=== PATIENT | female | born 1930 | race Caucasian/White ===

== ENCOUNTER 2016-11-03 13:49 | Observation (INO) | payer BC ==
[~2016-11-03] VITALS: Ht 172.7 cm; Wt 99.0 kg
[2016-11-03] MEDS ORDERED: NITROGLYCERIN OINT 2% 1GM PACKET EXT STA (14:07)
[2016-11-03] MEDS ORDERED: NITROGLYCERIN OINT 2% 1GM PACKET ONE (14:12)
[2016-11-03 14:18] LABS: BASO % 0.5 %; BASO ABS # 0.05 K/uL (0-0.2); COMPLETE YES; EOS % 2.2 %; HEMATOCRIT 36.9 % (37-47); IG% 0.3 %; LYMPH % 19.3 %; LYMPH ABS # 1.83 K/uL (1.2-3.4); MEAN CELL VOLUME 89.3 fL (80-100); MEAN CORPUSCULAR HGB CONC 34.7 g/dl (32-36); MEAN PLATELET VOLUME 9.7 fL (7.4-10.4); MONO % 7.3 %; NEUT % 70.4 %; PLATELET COUNT 289 K/uL (130-400); RED BLOOD COUNT 4.13 M/uL (4.2-5.4); WHITE BLOOD COUNT 9.46 K/uL (4.8-10.8)
--- NOTE | 2016-11-03 14:21 | EMERGENCY ROOM VISIT NOTE ---
History Report prepared by Cristhian: Amada Sagastume Under the Supervision of: Dr. Luis Castro M.D. First contact with patient: 14:02 Chief Complaint: CARDIAC ASSESSMENT Stated Complaint: CHEST DISCOMFORT History of Present Illness The patient is a 86 year old female who presents to the Emergency Room with complaints of intermittent midsternal chest pain that started 3 days ago. The history is limited secondary to dementia. The patient came to the ED via ambulance from the residential. Nursing staff reports that the patient's chest pain was relieved with nitroglycerin and aspirin. Nursing staff also reports that the patient was recently diagnosed with pneumonia. She has a history of hypertension and dementia. Source of History: patient, nursing staff History Limited By: dementia Onset: 3 days ago Position: chest (midsternal) Timing: intermittent Review of Systems See HPI for pertinent positives & negatives. ROS limited secondary to dementia. Past Medical & Surgical Medical Problems: (1) Anxiety (2) Asthma (3) Dementia (4) Hypertension (5) Hypothyroidism Family History No pertinent family history Social History Smoking Status: Never Smoker Housing Status: residential Current/Historical Medications Scheduled Aspirin (Aspirin Ec), 81 MG PO DAILY Bisoprolol & Hydrochlorothiazi (Bisoprolol Fumarate/[place]), 2.5-6.25 MG PO DAILY Bumetanide (Bumex), 0.5 MG PO 2XWK Calcium/Vitamin D (Os-Ld 500 Plus D), 1 TAB PO DAILY Cholecalciferol (Vitamin D-1000), 3 CAP PO DAILY Cyclosporine (Ophth) (Restasis), 1 DROPS OP BID Esomeprazole Magnesium (Nexium), 40 MG PO DAILY Fluticasone Prop/Salmeterol (Advair Diskus 250/50 60 Dose), 1 PUFFS INH BID Levothyroxine Sodium (Synthroid), 1 TAB PO DAILY Memantine Hcl (Namenda Xr), 1 CAP PO DAILY Montelukast Sodium (Singulair), 1 TAB PO HS Ocuvite Preservision (Ocuvite Preservision), 1 TAB PO BID Potassium Chloride (Micro-K Ext Rel), 10 MEQ PO BID Quetiapine Fumarate (Seroquel), 25 MG PO HS Saccharomyces Boulardii (Florastor), 1 CAP PO BID Scheduled PRN Acetaminophen Tab (Tylenol), 650 MG PO Q4H PRN for Pain or Fever Albuterol Hfa (Ventolin Hfa), 2-4 PUFFS INH Q6H PRN for Wheezing Benzocaine-Menthol (Mouth-Thro (Cepacol Sore Throat), 1 LUCA PO Q4H PRN for SORE THROAT Dextromethorphan-Guaifenesin (Siltussin-Dm), 5 ML PO Q8 PRN for cou Ipratropium-Albuterol (Duoneb), 1 TREATMENT INH Q6 PRN for Shortness of Breath Loperamide Hcl (Imodium), 2 MG PO Q4 PRN for Diarrhea Lorazepam (Ativan), 0.5 MG PO BID PRN for Anxiety Magnesium Hydroxide (Milk Of Magnesia), 30 ML PO DAILY PRN for Constipation Allergies Coded Allergies: No Known Allergies (Unverified , 11/03/16) Physical Exam Vital Signs Date Time Temp Pulse Resp B/P Pulse Ox O2 Delivery O2 Flow Rate FiO2 11/03/16 16:14 85 20 186/90 95 11/03/16 15:28 82 20 179/82 96 Room Air 11/03/16 14:11 96 Room Air 11/03/16 14:05 170/94 11/03/16 14:02 94 Room Air 11/03/16 14:01 82 11/03/16 13:56 37.0 83 18 196/83 99 Room Air 11/03/16 13:55 96 Room Air Physical Exam GENERAL: Patient is a healthy-appearing well-nourished female HEAD: Normocephalic atraumatic EYES: Ocular movements intact pupils equal and react to light OROPHARYNX mucous membranes are moist no exudates present no erythema or edema present NECK: Supple no nuchal rigidity CHEST: Good equal expansion LUNGS: Clear and equal to auscultation CARDIAC: Normal S1 and S2 ABDOMEN: Soft nontender no guarding BACK: No CVA tenderness EXTREMITIES: No pain upon palpation normal muscle strength in all groups no clubbing cyanosis or edema NEURO: Patient is following commands. Alert and not oriented to place. Cranial Nerves 2-12 grossly intact Medical Decision & Procedures ER Provider Diagnostic Interpretation: X-ray results as stated below per interpretation by me and the radiologist: CHEST ONE VIEW PORTABLE IMPRESSION: No active disease in the chest. Electronically signed by: Deng Monroy M.D. 11/03/2016 2:24 PM Dictated Date/Time: 11/03/2016 2:23 PM Laboratory Results 11/03/16 14:00 Red Blood Count 4.13, Mean Corpuscular Volume 89.3, Mean Corpuscular Hemoglobin 31.0, Mean Corpuscular Hemoglobin Concent 34.7, Mean Platelet Volume 9.7, Neutrophils (%) (Auto) 70.4, Lymphocytes (%) (Auto) 19.3, Monocytes (%) (Auto) 7.3, Eosinophils (%) (Auto) 2.2, Basophils (%) (Auto) 0.5, Neutrophils # (Auto) 6.65, Lymphocytes # (Auto) 1.83, Monocytes # (Auto) 0.69, Eosinophils # (Auto) 0.21, Basophils # (Auto) 0.05 Test 11/03/16 14:00 White Blood Count 9.46 K/uL (4.8-10.8) Red Blood Count 4.13 M/uL (4.2-5.4) Hemoglobin 12.8 g/dL (12.0-16.0) Hematocrit 36.9 % (37-47) Mean Corpuscular Volume 89.3 fL (80-100) Mean Corpuscular Hemoglobin 31.0 pg (25-34) Mean Corpuscular Hemoglobin Concent 34.7 g/dl (32-36) Platelet Count 289 K/uL (130-400) Mean Platelet Volume 9.7 fL (7.4-10.4) Neutrophils (%) (Auto) 70.4 % Lymphocytes (%) (Auto) 19.3 % Monocytes (%) (Auto) 7.3 % Eosinophils (%) (Auto) 2.2 % Basophils (%) (Auto) 0.5 % Neutrophils # (Auto) 6.65 K/uL (1.4-6.5) Lymphocytes # (Auto) 1.83 K/uL (1.2-3.4) Monocytes # (Auto) 0.69 K/uL (0.11-0.59) Eosinophils # (Auto) 0.21 K/uL (0-0.5) Basophils # (Auto) 0.05 K/uL (0-0.2) RDW Standard Deviation 47.1 fL (36.4-46.3) RDW Coefficient of Variation 14.3 % (11.5-14.5) Immature Granulocyte % (Auto) 0.3 % Immature Granulocyte # (Auto) 0.03 K/uL (0.00-0.02) Est Creatinine Clear Calc Drug Dose 45.1 ml/min Total Bilirubin 0.4 mg/dl (0.2-1) Direct Bilirubin < 0.1 mg/dl (0-0.2) Aspartate Amino Transf (AST/SGOT) 13 U/L (15-37) Alanine Aminotransferase (ALT/SGPT) 16 U/L (12-78) Alkaline Phosphatase 117 U/L (45-117) Total Creatine Kinase 43 U/L (26-192) Total Protein 7.8 gm/dl (6.4-8.2) Albumin 3.3 gm/dl (3.4-5.0) Lipase 108 U/L (73-393) Labs reviewed by ED physician. Medications Administered Medications (Trade) Dose Ordered Sig/Sohan Route Start Time Stop Time Status Last Admin Dose Admin Nitroglycerin 1 inch 1 inch Q6H STAT EXT 11/03/16 14:07 11/03/16 14:09 DC 11/03/16 14:07 1 INCH Sodium Chloride (Nss 1000ml) 1,000 ml @ 75 mls/hr [id number] IV 11/03/16 16:30 11/03/16 23:09 11/03/16 18:11 75 MLS/HR ECG Indication: chest pain Rate (beats per minute): 82 Rhythm: normal sinus Findings: no acute ischemic change, no ectopy ED Course 1404: Past medical records reviewed. The patient was evaluated in room C4. A complete history and physical examination was performed. 1407: Ordered Nitroglycerin 1 inch EXT 1455: Upon reexamination the patient is resting comfortably. The patient will be evaluated for further management. 1457: I discussed the patient's case with Kathi Goncalves, she has agreed to evaluate the patient for further management and care. Medical Decision Differential diagnosis: Etiologies such as cardiac ischemia, aortic dissection, pulmonary embolism, pneumonia, pneumothorax, musculoskeletal, infections, pericarditis, myocarditis , esophageal rupture, gastrointestinal, as well as others were entertained. This is an 86-year-old female who presents emergency department complaining of chest pain. The chest pain was relieved by nitroglycerin. The patient currently has no complaints however has heavy dementia and is not sure where she is. For this reason I felt that the patient should be admitted for chest pain rule out. She has a normal CK-MB and troponin. The patient was given 1 inch of Nitropaste in the emergency department and was in agreement with the treatment plan. Consults Time Called: 1450 Consulting Physician: Kathi Santamaria Returned Call: [phone] I discussed the patient's case with Kathi Goncalves, she has agreed to evaluate the patient for further management and care. Impression Primary Impression: Precordial chest pain Scribe Attestation The scribe's documentation has been prepared under my direction and personally reviewed by me in its entirety. I confirm that the note above accurately reflects all work, treatment, procedures, and medical decision making performed by me. Departure Information Dispostion Being Evaluated By Hospitalist Referrals Tate Gonzalez D.O. (PCP) Patient Instructions My [facility]
--- NOTE | 2016-11-03 14:25 | DIAGNOSTIC IMAGING REPORT ---
CHEST ONE VIEW PORTABLE CLINICAL HISTORY: Atypical chest pain COMPARISON STUDY: No previous studies for comparison. FINDINGS: The cardiac and mediastinal contours are normal. There is no evidence of focal pulmonary consolidation. There is no evidence of failure. No pleural effusions are visualized.[ IMPRESSION: No active disease in the chest. Electronically signed by: Deng Monroy M.D. 11/03/2016 2:24 PM Dictated Date/Time: 11/03/2016 2:23 PM
[2016-11-03] MEDS ORDERED: SACC250C PO (14:30)
[2016-11-03] MEDS ORDERED: LEVO25TA PO (14:30)
[2016-11-03] MEDS ORDERED: ADVIN25/60 INH (14:30)
[2016-11-03] MEDS ORDERED: BENZ10LO2 PO (14:30)
[2016-11-03] MEDS ORDERED: MEMA1CAP7 PO (14:30)
[2016-11-03] MEDS ORDERED: VNTHFA/IN INH (14:30)
[2016-11-03] MEDS ORDERED: DEXTSYP29 PO (14:30)
[2016-11-03] MEDS ORDERED: POTA10CA28 PO (14:30)
[2016-11-03] MEDS ORDERED: ACET325T96 PO (14:30)
[2016-11-03] MEDS ORDERED: LORA-741 PO (14:30)
[2016-11-03] MEDS ORDERED: CYCL0.052 OP (14:30)
[2016-11-03] MEDS ORDERED: BISO2.5T PO (14:30)
[2016-11-03] MEDS ORDERED: ASPI81TA28 PO (14:30)
[2016-11-03] MEDS ORDERED: MOML PO (14:30)
[2016-11-03] MEDS ORDERED: IPRASOL4 INH (14:30)
[2016-11-03] MEDS ORDERED: IMD/2 PO (14:30)
[2016-11-03] MEDS ORDERED: CALC500C70 PO (14:30)
[2016-11-03] MEDS ORDERED: CHOL100040 PO (14:30)
[2016-11-03] MEDS ORDERED: BUME1TAB PO (14:30)
[2016-11-03] MEDS ORDERED: MULT-190 PO (14:30)
[2016-11-03] MEDS ORDERED: QUET1TAB30 PO (14:30)
[2016-11-03] MEDS ORDERED: NXM/40 PO (14:30)
[2016-11-03] MEDS ORDERED: MONT1TAB3 PO (14:30)
[2016-11-03 14:42] LABS: ALT/SGPT 16 U/L (12-78); BLOOD UREA NITROGEN 18 mg/dl (7-18); BUN/CREATININE RATIO 16.3 (10-20); CALCIUM 8.9 mg/dl (8.5-10.1); CARBON DIOXIDE 28 mmol/L (21-32); CHLORIDE 92 mmol/L (98-107); GLUCOSE 116 mg/dl (70-99); POTASSIUM 3.6 mmol/L (3.5-5.1); SODIUM 130 mmol/L (136-145)
[2016-11-03 14:48] LABS: ALKALINE PHOSPHATASE 117 U/L (45-117); AST/SGOT 13 U/L (15-37); CKMB/CK RATIO 1.6 (0-3.0)
[2016-11-03] MEDS ORDERED: ONDANSETRON INJ 2 MG/ML 2 ML VIAL IV PRN (15:45)
[2016-11-03] MEDS ORDERED: NITROGLYCERIN 0.4 MG SL PER TAB CHARGE SL PRN (15:45)
[2016-11-03] MEDS ORDERED: LOPERAMIDE HCL 2 MG CAP PO PRN (16:00)
[2016-11-03] MEDS ORDERED: MAGNESIUM HYDROXIDE SUSP 30 ML UDC PO PRN (16:00)
[2016-11-03] MEDS ORDERED: ALBUTEROL HFA 8 GM INHALER INH PRN (16:00)
[2016-11-03] MEDS ORDERED: ALBUT/IPRATROP 3MG/0.5MG NEB 3 ML VIAL INH PRN (16:00)
[2016-11-03] MEDS ORDERED: COUGH DROP (SUGAR FREE) LOZ 24 LOZ/1 BOX PO PRN (16:00)
[2016-11-03] MEDS ORDERED: LORAZEPAM 0.5 MG TAB PO PRN (16:00)
[2016-11-03] MEDS ORDERED: GUAIFENESIN/DEXTROM SYRUP 100MG/10MG 5ML UDC PO PRN (16:00)
--- NOTE | 2016-11-03 16:11 | History and Physical ---
History & Physical Date & Time of Service: Nov 03, 2016 at 15:57 Chief Complaint: Chest Discomfort Primary Care Physician: Tate Gonzalez D.O. History of Present Illness Source: patient This is an 86 y/o female with PMHx of Dementia, Hypothyroidism, HTN and other problems as outlined below who presents to the ED from [facility] c/o intermittent chest pain x 3 days. Per patient she has been experiencing intermittent chest pain for three days that she describes as central 4/10 pain that does not radiate anywhere. Sxs only come when she is ambulating. She received nitro at the alf which seemed to help. She denies diaphoresis , SOB, nausea and lightheadedness/dizziness. Pt denies cardiac history. Pt denies fever/chills, abd pain, bowel or bladder issues, LE edema, calf pain. In the ED, vitals are stable. Trop and EKG are unremarkable. CXR is negative. Pt is currently chest pain free and pt will be admitted for further evaluation and treatment. Past Medical/Surgical History Medical Problems: (1) Anxiety Status: Chronic (2) Asthma Status: Chronic (3) Dementia Status: Chronic (4) Hypertension Status: Chronic (5) Hypothyroidism Status: Chronic Family History No pertinent family history Social History Smoking Status: Never Smoker Alcohol Use: none Drug Use: none Marital Status: Housing status: alf ([facility] ) Occupational Status: retired Allergies Coded Allergies: No Known Allergies (Unverified , 11/03/16) Home Medications Scheduled Aspirin (Aspirin Ec), 81 MG PO DAILY Bisoprolol & Hydrochlorothiazi (Bisoprolol Fumarate/[place]), 2.5-6.25 MG PO DAILY Bumetanide (Bumex), 0.5 MG PO 2XWK Calcium/Vitamin D (Os-Ld 500 Plus D), 1 TAB PO DAILY Cholecalciferol (Vitamin D-1000), 3 CAP PO DAILY Cyclosporine (Ophth) (Restasis), 1 DROPS OP BID Esomeprazole Magnesium (Nexium), 40 MG PO DAILY Fluticasone Prop/Salmeterol (Advair Diskus 250/50 60 Dose), 1 PUFFS INH BID Levothyroxine Sodium (Synthroid), 1 TAB PO DAILY Memantine Hcl (Namenda Xr), 1 CAP PO DAILY Montelukast Sodium (Singulair), 1 TAB PO HS Ocuvite Preservision (Ocuvite Preservision), 1 TAB PO BID Potassium Chloride (Micro-K Ext Rel), 10 MEQ PO BID Quetiapine Fumarate (Seroquel), 25 MG PO HS Saccharomyces Boulardii (Florastor), 1 CAP PO BID Scheduled PRN Acetaminophen Tab (Tylenol), 650 MG PO Q4H PRN for Pain or Fever Albuterol Hfa (Ventolin Hfa), 2-4 PUFFS INH Q6H PRN for Wheezing Benzocaine-Menthol (Mouth-Thro (Cepacol Sore Throat), 1 LUCA PO Q4H PRN for SORE THROAT Dextromethorphan-Guaifenesin (Siltussin-Dm), 5 ML PO Q8 PRN for cou Ipratropium-Albuterol (Duoneb), 1 TREATMENT INH Q6 PRN for Shortness of Breath Loperamide Hcl (Imodium), 2 MG PO Q4 PRN for Diarrhea Lorazepam (Ativan), 0.5 MG PO BID PRN for Anxiety Magnesium Hydroxide (Milk Of Magnesia), 30 ML PO DAILY PRN for Constipation Review of Systems Constitutional: No chills, No fatigue, No fever, No sweats, No weakness Eyes: No worsening of vision ENT: No hearing loss Respiratory: No cough, No dyspnea on exertion, No shortness of breath Cardiovascular: + chest pain, No claudication, No edema, No palpitations Abdomen: No GI bleeding, No constipation, No diarrhea, No nausea, No pain, No vomiting Musculoskeletal: No calf pain, No swelling Genitourinary - Female: No dysuria Neurologic: No weakness Psychiatric: No depression symptoms Endocrine: No fatigue Hematologic / Lymphatic: No abnormal bleeding/bruising Integumentary: No new/changing skin lesions Physical Exam Vital Signs Date Time Temp Pulse Resp B/P Pulse Ox O2 Delivery O2 Flow Rate FiO2 11/03/16 14:11 96 Room Air 11/03/16 14:05 170/94 11/03/16 14:02 94 Room Air 11/03/16 14:01 82 11/03/16 13:56 37.0 83 18 196/83 99 Room Air 11/03/16 13:55 96 Room Air General Appearance: WD/WN, no apparent distress, + pertinent finding (Pt is sitting up comfotably in bed ) Head: normocephalic, atraumatic Eyes: normal inspection ENT: hearing grossly normal Neck: supple Respiratory/Chest: chest non-tender, lungs clear, normal breath sounds, no respiratory distress Cardiovascular: regular rate, rhythm, no edema, no murmur Abdomen/GI: normal bowel sounds, non tender, soft Back: normal inspection Extremities/Musculoskelatal: normal inspection, no calf tenderness, no pedal edema Neurologic/Psych: alert, normal mood/affect, oriented x 3 Skin: normal color, warm/dry Diagnostics Laboratory Results Results Past 24 Hours Test 11/03/16 14:00 Range/Units White Blood Count 9.46 4.8-10.8 K/uL Red Blood Count 4.13 4.2-5.4 M/uL Hemoglobin 12.8 12.0-16.0 g/dL Hematocrit 36.9 37-47 % Mean Corpuscular Volume 89.3 80-100 fL Mean Corpuscular Hemoglobin 31.0 25-34 pg Mean Corpuscular Hemoglobin Concent 34.7 32-36 g/dl Platelet Count 289 130-400 K/uL Mean Platelet Volume 9.7 7.4-10.4 fL Neutrophils (%) (Auto) 70.4 % Lymphocytes (%) (Auto) 19.3 % Monocytes (%) (Auto) 7.3 % Eosinophils (%) (Auto) 2.2 % Basophils (%) (Auto) 0.5 % Neutrophils # (Auto) 6.65 1.4-6.5 K/uL Lymphocytes # (Auto) 1.83 1.2-3.4 K/uL Monocytes # (Auto) 0.69 0.11-0.59 K/uL Eosinophils # (Auto) 0.21 0-0.5 K/uL Basophils # (Auto) 0.05 0-0.2 K/uL RDW Standard Deviation 47.1 36.4-46.3 fL RDW Coefficient of Variation 14.3 11.5-14.5 % Immature Granulocyte % (Auto) 0.3 % Immature Granulocyte # (Auto) 0.03 0.00-0.02 K/uL Sodium Level 130 136-145 mmol/L Potassium Level 3.6 3.5-5.1 mmol/L Chloride Level 92 98-107 mmol/L Carbon Dioxide Level 28 21-32 mmol/L Anion Gap 10.0 3-11 mmol/L Blood Urea Nitrogen 18 7-18 mg/dl Creatinine 1.10 0.60-1.20 mg/dl Est Creatinine Clear Calc Drug Dose 45.1 ml/min Estimated GFR () 52.3 Estimated GFR (Non- 45.1 BUN/Creatinine Ratio 16.3 10-20 Random Glucose 116 70-99 mg/dl Calcium Level 8.9 8.5-10.1 mg/dl Total Bilirubin 0.4 0.2-1 mg/dl Direct Bilirubin < 0.1 0-0.2 mg/dl Aspartate Amino Transf (AST/SGOT) 13 15-37 U/L Alanine Aminotransferase (ALT/SGPT) 16 12-78 U/L Alkaline Phosphatase 117 45-117 U/L Total Creatine Kinase 43 26-192 U/L Creatine Kinase MB 0.7 0.5-3.6 ng/ml Creatine Kinase MB Ratio 1.6 0-3.0 Troponin I < 0.015 0-0.045 ng/ml Total Protein 7.8 6.4-8.2 gm/dl Albumin 3.3 3.4-5.0 gm/dl Lipase 108 73-393 U/L Diagnostic Radiology CXR IMPRESSION: No active disease in the chest. EKG EKG: NSR at 82 bpm with no acute ischemic changes noted; no previous EKG available for comparison Impression Assessment and Plan EXERTIONAL CHEST PAIN R/O ACS presented with exertional chest pain relieved with nitro -observation status to telemetry -RFs include HTN and age -EKG no acute ischemic change; repeat EKG PRN chest pain and in AM -Initial troponin is negative; continue to monitor with serial cardiac enzymes q6h -obtain echo to r/o cardiac wall motion abnormalities -cont ASA and BB -start statin for plaque stabilization -consider cardio consult if trops trend up -pt is currently chest pain free -continue to monitor ELEVATED BLOOD PRESSURE WITH H/O HTN -BP elevated -give hydralazine now -cont bisoprolol-HCTZ -monitor HYPONATREMIA -Na+ 130; likely pre-renal -check urine sodium, urine creatinine and serum osm -start IVF -monitor with prp tonight and in AM HYPOTHYROIDISM -cont levothyroxine DEMENTIA -cont Namenda and Seroquel DVT PROPHYLAXIS -subq Lovenox CODE STATUS -DNR per documentation from [facility] DISPO Observation status until further workup is complete. Pt seen in collaboration with Dr. Estevez. Please see her addendum for further details. Thanks! ADDENDUM: I have seen and examined the patient and discussed the case with the provider above. I agree with the assessment and plan as stated. On exam she is alert and oriented to person and place but doesn't know the date. 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 She denies any chest pain since admission. She is hemodynamically stable and afebrile with a slight elevation in BP to the 150s systolic. Physical exam is unremarkable except that she cannot move around the bed easily (may be related to difficulty following instructions) and she has reproducible chest pain to palpation in the parasternal area that is significant. Cont tele monitoring overnight. Holding HCTZ insetting of hyponatremia and will continue giving fluids throughout the night. Will trend Na again with next cardiac enzymes at 0200. After beginning IVF Na went from 130 to 131. Favor MSK etiology of chest pain. Dia Estevez DO (Hospitalist) Level of Care Telemetry Resuscitation Status DO NOT RESUSCITATE VTE Prophylaxis VTE Risk Assessment Done? Y/N: Yes Risk Level: Moderate Given or contraindicated: Enoxaparin (Lovenox)SQ Social Service Consult Lives in Retirement
[2016-11-03] MEDS ORDERED: ASPIRIN 81 MG CHEW PO STA (16:16)
[2016-11-03] MEDS ORDERED: IV FLUIDS COMPLETED PRN (16:30)
[2016-11-03] MEDS ORDERED: SODIUM CHLORIDE 0.9% 1000ML 1,000 ML IV SCH (16:30)
[2016-11-03 17:07] VITALS: BP 171/76; PULSE 85; TEMP 36.6; O2SAT 94
[2016-11-03 18:05] LABS: PROTHROMBIN TIME (PATIENT) 10.4 SECONDS (9.0-12.0)
[2016-11-03 19:43] VITALS: BP 171/76; PULSE 85; TEMP 36.6; O2SAT 94; Ht 172.7 cm; Wt 99.0 kg
[2016-11-03 19:44] VITALS: BP 179/75; PULSE 89; TEMP 36.4; O2SAT 94
[2016-11-03] MEDS: FLUTICASONE/SALMETEROL 250/50 (ADVAIR) 14 PUFF/1 INHALER INH SCH (20:42)
[2016-11-03] MEDS: ENOXAPARIN 40 MG/0.4 ML SYR SC SCH (20:42)
[2016-11-03] MEDS: SACCHAROMYCES BOUL (FLORASTOR) 250 MG CAP PO SCH (20:44)
[2016-11-03] MEDS: POTASSIUM CHLORIDE 10 MEQ TABCR PO SCH (20:45)
[2016-11-03] MEDS: ATORVASTATIN 40 MG TAB PO SCH (20:45)
[2016-11-03] MEDS: CEROVITE ADV FORMULA TAB PO SCH (20:45)
[2016-11-03] MEDS: MONTELUKAST SOD 10 MG TAB PO SCH (20:46)
[2016-11-03] MEDS: QUETIAPINE FUMARATE 25 MG TAB PO SCH (20:46)
[2016-11-03 20:47] VITALS: BP 159/75; O2SAT 94
[2016-11-03] MEDS ORDERED: INFLUENZA ADMINISTRATION CHARGE ONE (21:15)
[2016-11-03] MEDS ORDERED: PNEUMOCOCCAL ADMINISTRATION CHARGE ONE (21:15)
[2016-11-03] MEDS ORDERED: INFLUENZA VIRUS QUAD VACCINE 0.5 ML SYR IM. ONE (21:15)
[2016-11-03] MEDS ORDERED: PNEUMOCOCCAL POLYSACCHARIDES 25 MCG/0.5 ML VIAL/SYR IM. ONE (21:15)
[2016-11-03 21:27] LABS: BLOOD UREA NITROGEN 19 mg/dl (7-18); BUN/CREATININE RATIO 16.2 (10-20); CALCIUM 8.1 mg/dl (8.5-10.1); CARBON DIOXIDE 27 mmol/L (21-32); CHLORIDE 94 mmol/L (98-107); GLUCOSE 116 mg/dl (70-99); POTASSIUM 3.9 mmol/L (3.5-5.1); SODIUM 131 mmol/L (136-145)
[2016-11-03 23:46] VITALS: BP 147/75; PULSE 91; TEMP 36.8; O2SAT 93
[2016-11-04] VITALS (7 sets, daily range): BP systolic 132–180; BP diastolic 67–80; PULSE 80–91; TEMP 36.4–36.9; O2SAT 92–94
[2016-11-04 02:44] LABS: BLOOD UREA NITROGEN 21 mg/dl (7-18); BUN/CREATININE RATIO 19.1 (10-20); CALCIUM 8.1 mg/dl (8.5-10.1); CARBON DIOXIDE 29 mmol/L (21-32); CHLORIDE 95 mmol/L (98-107); GLUCOSE 107 mg/dl (70-99); POTASSIUM 3.9 mmol/L (3.5-5.1); SODIUM 134 mmol/L (136-145)
[2016-11-04] MEDS: LEVOTHYROXINE 25 MCG TAB PO SCH (06:25)
[2016-11-04 07:25] LABS: MEAN CELL VOLUME 88.8 fL (80-100); MEAN CORPUSCULAR HEMOGLOBIN 30.1 pg (25-34); MEAN CORPUSCULAR HGB CONC 33.9 g/dl (32-36); MEAN PLATELET VOLUME 9.4 fL (7.4-10.4); PLATELET COUNT 221 K/uL (130-400); RED BLOOD COUNT 3.49 M/uL (4.2-5.4); WHITE BLOOD COUNT 9.75 K/uL (4.8-10.8)
[2016-11-04] MEDS: FLUTICASONE/SALMETEROL 250/50 (ADVAIR) 14 PUFF/1 INHALER INH SCH ×2 (07:55→20:38)
[2016-11-04] MEDS: SACCHAROMYCES BOUL (FLORASTOR) 250 MG CAP PO SCH ×2 (07:55→20:39)
[2016-11-04 07:57] LABS: BUN/CREATININE RATIO 18.4 (10-20); CREATININE 1.1 mg/dl (0.60-1.20); POTASSIUM 3.9 mmol/L (3.5-5.1)
[2016-11-04] MEDS: POTASSIUM CHLORIDE 10 MEQ TABCR PO SCH ×2 (07:57→20:39)
[2016-11-04] MEDS: CALCIUM 600MG + VIT D 400 IU TAB PO SCH (07:58)
[2016-11-04] MEDS: CHOLECALCIFEROL 1000 INTER.UNIT TAB PO SCH (07:58)
[2016-11-04] MEDS: ASPIRIN 81 MG ECTAB PO SCH (07:59)
[2016-11-04] MEDS: PANTOprazole SOD 40 MG TAB PO SCH (07:59)
[2016-11-04] MEDS: BISOPROLOL FUMARATE 5 MG TAB PO SCH (08:00)
[2016-11-04] MEDS: CEROVITE ADV FORMULA TAB PO SCH ×2 (08:00→20:41)
[2016-11-04] MEDS ORDERED: PERFLUTREN LIPID MICROSPHERE (DEFINITY) IV ONE (08:17)
[2016-11-04] MEDS ORDERED: HYDROCHLOROTHIAZIDE 25 MG TAB PO SCH (09:00)
--- NOTE | 2016-11-04 11:36 | Progress Note ---
Internal Med Progress Note Date of Service: Nov 04, 2016. Provider Documentation: SUBJECTIVE: The patient was seen and examined Denies any more pain since admission No other symptoms Lying in bed comfortably OBJECTIVE: Vital Signs-as noted below Exam: General-No distress at rest Eyes-Normal ENT-normal Neck-supple Lungs-Clear to ausucltate bilaterally Heart-Regular,no murmur appreciated Abdomen-Benign,no masses,bowel sound present Extremities-NO edema Neuro-AAO Has dementia Generally weak but focal neuro deficit Lab data as noted below. ASSESSMENT & PLAN: Chest pain -presented with exertional chest pain relieved with nitro -EKG no acute ischemic change; repeat EKG-incomplete LBBB -Serial Troponin -negative for any ACS -ECHO-report pending -cont ASA and BB -start statin for plaque stabilization -remains free from any chest p[ain Uncontrolled Blood Pressure -BP elevated -give hydralazine now -cont bisoprolol-HCTZ -Remains still on the upper side HYPONATREMIA -Na+ 130; likely pre-renal -check urine sodium, urine creatinine and serum osm -start IVF -monitor with prp tonight and in AM -134 this Morning HYPOTHYROIDISM -cont levothyroxine DEMENTIA -cont Namenda and Seroquel DVT PROPHYLAXIS -subq Lovenox CODE STATUS -DNR per documentation from [facility] DISPO PT/OT evaluation Likely back to Personal care in a day or two Vital Signs: Date Time Temp Pulse Resp B/P Pulse Ox O2 Delivery O2 Flow Rate FiO2 11/04/16 11:02 36.8 91 20 168/78 93 Room Air 11/04/16 07:21 36.9 86 20 150/68 94 Room Air 11/04/16 04:12 36.7 87 18 132/67 94 Room Air 11/04/16 04:00 Room Air 11/04/16 00:00 Room Air 11/03/16 23:46 36.8 91 18 147/75 93 Room Air 11/03/16 20:47 88 159/75 94 Room Air 11/03/16 19:44 36.4 89 18 179/75 94 Room Air 11/03/16 19:43 36.6 85 18 171/76 94 Room Air 11/03/16 17:07 36.6 85 18 171/76 94 Room Air 11/03/16 16:14 85 20 186/90 95 11/03/16 15:28 82 20 179/82 96 Room Air 11/03/16 14:11 96 Room Air 11/03/16 14:05 170/94 11/03/16 14:02 94 Room Air 11/03/16 14:01 82 11/03/16 13:56 37.0 83 18 196/83 99 Room Air 11/03/16 13:55 96 Room Air Lab Results: Results Past 24 Hours Test 11/03/16 14:00 11/03/16 17:27 11/03/16 20:00 11/03/16 20:43 Range/Units White Blood Count 9.46 4.8-10.8 K/uL Red Blood Count 4.13 4.2-5.4 M/uL Hemoglobin 12.8 12.0-16.0 g/dL Hematocrit 36.9 37-47 % Mean Corpuscular Volume 89.3 80-100 fL Mean Corpuscular Hemoglobin 31.0 25-34 pg Mean Corpuscular Hemoglobin Concent 34.7 32-36 g/dl Platelet Count 289 130-400 K/uL Mean Platelet Volume 9.7 7.4-10.4 fL Neutrophils (%) (Auto) 70.4 % Lymphocytes (%) (Auto) 19.3 % Monocytes (%) (Auto) 7.3 % Eosinophils (%) (Auto) 2.2 % Basophils (%) (Auto) 0.5 % Neutrophils # (Auto) 6.65 1.4-6.5 K/uL Lymphocytes # (Auto) 1.83 1.2-3.4 K/uL Monocytes # (Auto) 0.69 0.11-0.59 K/uL Eosinophils # (Auto) 0.21 0-0.5 K/uL Basophils # (Auto) 0.05 0-0.2 K/uL RDW Standard Deviation 47.1 36.4-46.3 fL RDW Coefficient of Variation 14.3 11.5-14.5 % Immature Granulocyte % (Auto) 0.3 % Immature Granulocyte # (Auto) 0.03 0.00-0.02 K/uL Sodium Level 130 131 136-145 mmol/L Potassium Level 3.6 3.9 3.5-5.1 mmol/L Chloride Level 92 94 98-107 mmol/L Carbon Dioxide Level 28 27 21-32 mmol/L Anion Gap 10.0 10.0 3-11 mmol/L Blood Urea Nitrogen 18 19 7-18 mg/dl Creatinine 1.10 1.20 0.60-1.20 mg/dl Est Creatinine Clear Calc Drug Dose 45.1 40.6 ml/min Estimated GFR () 52.3 47.1 Estimated GFR (Non- 45.1 40.6 BUN/Creatinine Ratio 16.3 16.2 10-20 Random Glucose 116 116 70-99 mg/dl Calcium Level 8.9 8.1 8.5-10.1 mg/dl Total Bilirubin 0.4 0.2-1 mg/dl Direct Bilirubin < 0.1 0-0.2 mg/dl Aspartate Amino Transf (AST/SGOT) 13 15-37 U/L Alanine Aminotransferase (ALT/SGPT) 16 12-78 U/L Alkaline Phosphatase 117 45-117 U/L Total Creatine Kinase 43 26-192 U/L Creatine Kinase MB 0.7 < 0.5 0.5-3.6 ng/ml Creatine Kinase MB Ratio 1.6 0-3.0 Troponin I < 0.015 < 0.015 0-0.045 ng/ml Total Protein 7.8 6.4-8.2 gm/dl Albumin 3.3 3.4-5.0 gm/dl Lipase 108 73-393 U/L Prothrombin Time 10.4 9.0-12.0 SECONDS Prothromb Time International Ratio 1.0 0.9-1.1 Test 11/04/16 02:00 11/04/16 02:01 11/04/16 07:02 Range/Units Creatine Kinase MB Ratio 0-3.0 Sodium Level 134 133 136-145 mmol/L Potassium Level 3.9 3.9 3.5-5.1 mmol/L Chloride Level 95 95 98-107 mmol/L Carbon Dioxide Level 29 28 21-32 mmol/L Anion Gap 10.0 10.0 3-11 mmol/L Blood Urea Nitrogen 21 20 7-18 mg/dl Creatinine 1.10 1.10 0.60-1.20 mg/dl Est Creatinine Clear Calc Drug Dose 44.3 44.3 ml/min Estimated GFR () 52.3 52.3 Estimated GFR (Non- 45.1 45.1 BUN/Creatinine Ratio 19.1 18.4 10-20 Random Glucose 107 97 70-99 mg/dl Calcium Level 8.1 8.0 8.5-10.1 mg/dl Creatine Kinase MB 0.8 0.5-3.6 ng/ml Troponin I < 0.015 0-0.045 ng/ml White Blood Count 9.75 4.8-10.8 K/uL Red Blood Count 3.49 4.2-5.4 M/uL Hemoglobin 10.5 12.0-16.0 g/dL Hematocrit 31.0 37-47 % Mean Corpuscular Volume 88.8 80-100 fL Mean Corpuscular Hemoglobin 30.1 25-34 pg Mean Corpuscular Hemoglobin Concent 33.9 32-36 g/dl RDW Standard Deviation 46.5 36.4-46.3 fL RDW Coefficient of Variation 14.3 11.5-14.5 % Platelet Count 221 130-400 K/uL Mean Platelet Volume 9.4 7.4-10.4 fL Osmolality 275 280-300 mOsm/kg
[2016-11-04] MEDS ORDERED: NON-FORMULARY MEDICATION SCH (11:45)
--- NOTE | 2016-11-04 13:30 | ECHOCARDIOGRAM REPORT ---
*NOTICE TO RECEIVING DEMOCRAT AGENCY This information is strictly Confidential and protected under [place] law. [place] law prohibits you from making any further disclosure of this information unless further disclosure is expressly permitted by the written consent of the person to whom it pertains or is authorized by law. A general authorization for the release of medical or other information is not sufficient for this purpose. Hospital accepts no responsibility if the information is made available to any other person, INCLUDING THE PATIENT. Interpretation Summary * Name: Jason BURCH Study Date: 11/04/2016 08:33 AM BP: 132/67 mmHg * Patient Location: [facility]\S\N283\S\1 HR: 87 * : 1930 (M/d/yyyy) Gender: Female Height: 69 in * Age: 86 yrs Ethnicity: [place] Weight: 218 lb * Ordering Physician: Kathi Plunkett * Performed By: Blanche Carranza RDCS * * Reason For Study: Chest pain * BSA: 2.1 m2 * Grossly normal valvular structure and function. * -- Conclusions -- * There is moderate concentric left ventricular hypertrophy. * Ejection Fraction = >70 %. * The right ventricular systolic function is normal. * The left atrium is moderately dilated. * The right atrium is moderately dilated. * Grossly normal valvular structure and function. Procedure Details * A complete two-dimensional transthoracic echocardiogram was performed (2D, M-mode, Doppler and color flow Doppler). * A contrast injection of Definity was performed to improve assessment of LV function. * Contrast was injected into an intravenous site in the left arm. * One vial of Definity ultrasound contrast was diluted in normal saline to a total volume of 10 ml. A total of '4' ml of solution was administered during imaging. * Lot # [id number] of Definity utilized for procedure. * Expiration date OCT 11. * The attending nurse who injected the contrast agent was Makenna Valenzuela RN. Left Ventricle * The left ventricle is normal in size. * There is moderate concentric left ventricular hypertrophy. * Ejection Fraction = >70 %. * The left ventricular wall motion is normal. Right Ventricle * The right ventricle is normal size. * The right ventricular systolic function is normal. Atria * The left atrium is moderately dilated. * The right atrium is moderately dilated. Mitral Valve * There is moderate to severe mitral annular calcification. * Significant mitral regurgitation is absent. Tricuspid Valve * The tricuspid valve is not well visualized. * Significant tricuspid regurgitation is absent. Aortic Valve * The aortic valve is tricuspid. The leaflet thickness if normal. There is no aortic stenosis, and no significant insufficiency. * The aortic valve is not well visualized. * No hemodynamically significant valvular aortic stenosis. * There is no significant aortic regurgitation. Pulmonic Valve * The pulmonic valve is not well visualized. Great Vessels * The aortic root and proximal ascending aorta are normal sized. Pericardium/Pleural * There is no pericardial effusion. MMode 2D Measurements and Calculations IVSd 0.99 cm LVIDd 4.7 cm LVIDs 2.8 cm LVPWd 0.99 cm IVS/LVPW 10 FS 40.9 % EDV(Teich) 103.1 ml ESV(Teich) 29.1 ml EF(Teich) 71.7 % EDV(cubed) 104.7 ml ESV(cubed) 21.6 ml EF(cubed) 79.4 % LV mass(C)d 162.8 grams LV mass(C)dI 76.0 grams/m\S\2 SV(Teich) 73.9 ml SI(Teich) 34.5 ml/m\S\2 SV(cubed) 83.2 ml SI(cubed) 38.8 ml/m\S\2 Ao root diam 2.8 cm Ao root area 6.3 cm\S\2 ACS 1.6 cm asc Aorta Diam 2.9 cm LVOT diam 1.9 cm LVOT area 2.7 cm\S\2 LVAd ap4 22.6 cm\S\2 LVLd ap4 6.7 cm EDV(MOD-sp4) 64.8 ml EDV(sp4-el) 65.0 ml LVAs ap4 10.3 cm\S\2 LVLs ap4 5.0 cm ESV(MOD-sp4) 18.3 ml ESV(sp4-el) 17.8 ml EF(MOD-sp4) 71.8 % EF(sp4-el) 72.6 % LVAd ap2 15.0 cm\S\2 LVLd ap2 6.3 cm EDV(MOD-sp2) 29.7 ml EDV(sp2-el) 29.9 ml LVAs ap2 6.7 cm\S\2 LVLs ap2 4.9 cm ESV(MOD-sp2) 7.7 ml ESV(sp2-el) 7.8 ml EF(MOD-sp2) 73.9 % EF(sp2-el) 74.1 % LVLd %diff -4.78 % EDV(MOD-bp) 44.9 ml LVLs %diff -3.16 % ESV(MOD-bp) 11.9 ml EF(MOD-bp) 73.6 % SV(MOD-sp4) 46.6 ml SI(MOD-sp4) 21.7 ml/m\S\2 SV(MOD-sp2) 21.9 ml SI(MOD-sp2) 10.2 ml/m\S\2 SV(MOD-bp) 33.0 ml SI(MOD-bp) 15.4 ml/m\S\2 SV(sp4-el) 47.2 ml SI(sp4-el) 22.0 ml/m\S\2 SV(sp2-el) 22.2 ml SI(sp2-el) 10.4 ml/m\S\2 Doppler Measurements and Calculations MV E max venancio 138.0 cm/sec MV A max venancio 160.7 cm/sec MV E/A 0.86 MV dec time 0.19 sec Ao V2 max 207.1 cm/sec Ao max PG 17.1 mmHg Ao max PG (full) 13.8 mmHg Ao V2 mean 134.6 cm/sec Ao mean PG 8.6 mmHg Ao V2 VTI 39.7 cm JOANNE(V,A) 1.2 cm\S\2 JOANNE(V,D) 1.2 cm\S\2 LV V1 max PG 3.4 mmHg LV V1 max 92.1 cm/sec SV(Ao) 249.6 ml SI(Ao) 116.5 ml/m\S\2 PA V2 max 114.2 cm/sec PA max PG 5.2 mmHg PA acc slope 719.1 cm/sec\S\2 PA acc time 0.11 sec TR max venancio 120.1 cm/sec PA pr(Accel) 31.1 mmHg
[2016-11-04] MEDS: ACETAMINOPHEN 325 MG TAB PO PRN ×2 (15:50→16:56)
[2016-11-04 18:39] LABS: MANUAL MICROSCOPIC REQUIRED? YES; URINE APPEARANCE CLOUDY (CLEAR); URINE BILIRUBIN NEG (NEG); URINE COLOR YELLOW; URINE NITRITE POS (NEG); UROBILINOGEN NEG (NEG)
[2016-11-04 18:40] LABS: REVIEW REQ? NO
[2016-11-04 18:53] LABS: URINE BACTERIA 4+ (NEG); URINE RBC 0-4 /hpf (0-4); URINE WBC >30 /hpf (0-5)
[2016-11-04 18:54] LABS: ZZURINE CULT IF INDIC CATH YES
[2016-11-04] MEDS: HydrALAZINE HCL 20 MG/ML VIAL IV. PRN (20:37)
[2016-11-04] MEDS: ENOXAPARIN 40 MG/0.4 ML SYR SC SCH (20:39)
[2016-11-04] MEDS: ATORVASTATIN 40 MG TAB PO SCH (20:40)
[2016-11-04] MEDS: QUETIAPINE FUMARATE 25 MG TAB PO SCH (20:40)
[2016-11-04] MEDS: MONTELUKAST SOD 10 MG TAB PO SCH (20:40)
[2016-11-05] VITALS (8 sets, daily range): BP systolic 147–205; BP diastolic 69–79; PULSE 73–91; TEMP 36.7–37.2; O2SAT 91–95
[2016-11-05] MEDS: LEVOTHYROXINE 25 MCG TAB PO SCH (06:16)
[2016-11-05] MEDS ORDERED: CEFTRIAXONE SOD INJ 1,000 MG in DEXTROSE 5% 50ML 50 ML IV ONE (08:47)
[2016-11-05] MEDS: BISOPROLOL FUMARATE 5 MG TAB PO SCH (09:32)
[2016-11-05] MEDS: ASPIRIN 81 MG ECTAB PO SCH (09:32)
[2016-11-05] MEDS: SACCHAROMYCES BOUL (FLORASTOR) 250 MG CAP PO SCH ×2 (09:32→20:04)
[2016-11-05] MEDS: PANTOprazole SOD 40 MG TAB PO SCH (09:33)
[2016-11-05] MEDS: CHOLECALCIFEROL 1000 INTER.UNIT TAB PO SCH (09:33)
[2016-11-05] MEDS: CEROVITE ADV FORMULA TAB PO SCH ×2 (09:33→20:06)
[2016-11-05] MEDS: CALCIUM 600MG + VIT D 400 IU TAB PO SCH (09:33)
[2016-11-05] MEDS: FLUTICASONE/SALMETEROL 250/50 (ADVAIR) 14 PUFF/1 INHALER INH SCH ×2 (09:34→20:01)
[2016-11-05] MEDS: POTASSIUM CHLORIDE 10 MEQ TABCR PO SCH ×2 (09:34→20:05)
[2016-11-05] MEDS: CEFTRIAXONE SOD INJ 1,000 MG in DEXTROSE 5% 50ML 50 ML IV SCH (09:51)
--- NOTE | 2016-11-05 11:53 | Progress Note ---
Internal Med Progress Note Date of Service: Nov 05, 2016. Provider Documentation: SUBJECTIVE: The patient was seen and examined Denies any more pain since admission Lying in bed comfortably Remains stable OBJECTIVE: Vital Signs-as noted below Exam: General-No distress at rest Eyes-Normal ENT-normal Neck-supple Lungs-Clear to ausucltate bilaterally decreased breath sound at the bases Heart-Regular,no murmur appreciated Abdomen-Benign,no masses,bowel sound present Extremities-NO edema Neuro-AAO Has dementia Generally weak but focal neuro deficit Lab data as noted below. ASSESSMENT & PLAN: Chest pain -presented with exertional chest pain relieved with nitro -EKG no acute ischemic change; repeat EKG-incomplete LBBB -Serial Troponin -negative for any ACS -ECHO:: * There is moderate concentric left ventricular hypertrophy. * Ejection Fraction = >70 %. * The right ventricular systolic function is normal. * The left atrium is moderately dilated. * The right atrium is moderately dilated. * Grossly normal valvular structure and function. -cont ASA and BB -start statin for plaque stabilization -remains free from any chest pain UTI Started on Ceftriaxone Uncontrolled Blood Pressure -BP elevated -give hydralazine now -cont bisoprolol-HCTZ -Remains still on the upper side HYPONATREMIA -Na+ 130; likely pre-renal -check urine sodium, urine creatinine and serum osm -start IVF -monitor with prp tonight and in AM -134 this Morning HYPOTHYROIDISM -cont levothyroxine DEMENTIA -cont Namenda and Seroquel DVT PROPHYLAXIS -subq Lovenox CODE STATUS -DNR per documentation from [facility] DISPO PT/OT evaluation Likely back to Personal care in a day or two Vital Signs: Date Time Temp Pulse Resp B/P Pulse Ox O2 Delivery O2 Flow Rate FiO2 11/05/16 08:00 37.0 82 18 170/76 94 11/05/16 08:00 94 Room Air 11/05/16 04:50 36.7 82 18 168/74 92 Room Air 11/05/16 04:00 Room Air 11/05/16 00:20 36.7 83 18 161/70 95 Room Air 11/05/16 00:00 Room Air 11/04/16 20:13 36.4 80 18 178/78 92 Room Air 11/04/16 20:00 Room Air 11/04/16 16:00 Room Air 11/04/16 15:42 36.9 87 20 180/80 94 Room Air 11/04/16 12:00 94 Room Air Lab Results: Results Past 24 Hours Test 11/04/16 18:00 Range/Units Urine Color YELLOW Urine Appearance CLOUDY CLEAR Urine pH 7.0 4.5-7.5 Urine Specific [place] 1.020 1.000-1.030 Urine Protein TRACE NEG Urine Glucose (UA) NEG NEG Urine Ketones NEG NEG Urine Occult Blood TRACE NEG Urine Nitrite POS NEG Urine Bilirubin NEG NEG Urine Urobilinogen NEG NEG Urine Leukocyte Esterase MODERATE NEG Urine RBC 0-4 0-4 /hpf Urine WBC >30 0-5 /hpf Urine Epithelial Cells >30 0-5 /lpf Urine Bacteria 4+ NEG Microbiology Results 11/04/16 Urine Culture - Preliminary, Resulted Escherichia Coli
[2016-11-05] MEDS: HydrALAZINE HCL 20 MG/ML VIAL IV. PRN ×2 (12:40→23:03)
[2016-11-05] MEDS: ENOXAPARIN 40 MG/0.4 ML SYR SC SCH (20:02)
[2016-11-05] MEDS: QUETIAPINE FUMARATE 25 MG TAB PO SCH (20:03)
[2016-11-05] MEDS: MONTELUKAST SOD 10 MG TAB PO SCH (20:06)
[2016-11-05] MEDS: ATORVASTATIN 40 MG TAB PO SCH (20:06)
[2016-11-06] VITALS (10 sets, daily range): BP systolic 134–171; BP diastolic 65–80; PULSE 76–84; TEMP 36.3–37; O2SAT 91–96
[2016-11-06 05:52] LABS: HEMATOCRIT 31.5 % (37-47); MEAN CELL VOLUME 86.8 fL (80-100); MEAN CORPUSCULAR HEMOGLOBIN 30.6 pg (25-34); MEAN CORPUSCULAR HGB CONC 35.2 g/dl (32-36); MEAN PLATELET VOLUME 8.9 fL (7.4-10.4); PLATELET COUNT 237 K/uL (130-400); RED BLOOD COUNT 3.63 M/uL (4.2-5.4); WHITE BLOOD COUNT 11.79 K/uL (4.8-10.8)
[2016-11-06] MEDS: LEVOTHYROXINE 25 MCG TAB PO SCH (06:10)
[2016-11-06 06:14] LABS: BUN/CREATININE RATIO 23.7 (10-20); CALCIUM 8.2 mg/dl (8.5-10.1); CREATININE 1.1 mg/dl (0.60-1.20); POTASSIUM 4.3 mmol/L (3.5-5.1)
[2016-11-06] MEDS: CEFTRIAXONE SOD INJ 1,000 MG in DEXTROSE 5% 50ML 50 ML IV SCH (07:56)
[2016-11-06] MEDS: SACCHAROMYCES BOUL (FLORASTOR) 250 MG CAP PO SCH ×2 (07:57→19:49)
[2016-11-06] MEDS: POTASSIUM CHLORIDE 10 MEQ TABCR PO SCH ×2 (07:57→19:50)
[2016-11-06] MEDS: ASPIRIN 81 MG ECTAB PO SCH (07:57)
[2016-11-06] MEDS: CALCIUM 600MG + VIT D 400 IU TAB PO SCH (07:58)
[2016-11-06] MEDS: CEROVITE ADV FORMULA TAB PO SCH ×2 (07:58→19:51)
[2016-11-06] MEDS: CHOLECALCIFEROL 1000 INTER.UNIT TAB PO SCH (07:59)
[2016-11-06] MEDS: BISOPROLOL FUMARATE 5 MG TAB PO SCH (07:59)
[2016-11-06] MEDS: FLUTICASONE/SALMETEROL 250/50 (ADVAIR) 14 PUFF/1 INHALER INH SCH ×2 (07:59→19:49)
[2016-11-06] MEDS: PANTOprazole SOD 40 MG TAB PO SCH (08:00)
[2016-11-06] MEDS ORDERED: BUMETANIDE 1 MG TAB PO SCH (09:00)
--- NOTE | 2016-11-06 11:01 | Progress Note ---
Internal Med Progress Note Date of Service: Nov 06, 2016. Provider Documentation: SUBJECTIVE: The patient was seen and examined Lying in bed comfortably Remains stable and denies any symptoms No fever,chills No Nausea and or vomiting OBJECTIVE: Vital Signs-as noted below Exam: General-No distress at rest Eyes-Normal ENT-normal Neck-supple Lungs-Clear to ausucltate bilaterally decreased breath sound at the bases Heart-Regular,no murmur appreciated Abdomen-Benign,no masses,bowel sound present Extremities-NO edema Neuro-AAO Has dementia Generally weak but focal neuro deficit Lab data as noted below. ASSESSMENT & PLAN: Chest pain -NO ACS and no recurrence -presented with exertional chest pain relieved with nitro -EKG no acute ischemic change; repeat EKG-incomplete LBBB -Serial Troponin -negative for any ACS -ECHO:: * There is moderate concentric left ventricular hypertrophy. * Ejection Fraction = >70 %. * The right ventricular systolic function is normal. * The left atrium is moderately dilated. * The right atrium is moderately dilated. * Grossly normal valvular structure and function. -cont ASA and BB -start statin for plaque stabilization -remains free from any chest pain UTI Started on Ceftriaxone Continue for now Await full sensitivity report Uncontrolled Blood Pressure -BP elevated -give hydralazine now -cont bisoprolol-HCTZ -Reasonably stable HYPONATREMIA -Na+ 130; likely pre-renal -check urine sodium, urine creatinine and serum osm -start IVF -monitor with prp tonight and in AM -134 this Morning and maintaining HYPOTHYROIDISM -cont levothyroxine DEMENTIA -cont Namenda and Seroquel DVT PROPHYLAXIS -subq Lovenox CODE STATUS -DNR per documentation from [facility] DISPO PT/OT evaluation Likely back to Personal care in a day or two Vital Signs: Date Time Temp Pulse Resp B/P Pulse Ox O2 Delivery O2 Flow Rate FiO2 11/06/16 07:25 36.3 82 20 143/73 94 11/06/16 04:00 Room Air 11/06/16 03:52 37.0 81 16 134/73 91 Room Air 11/06/16 00:17 84 146/65 11/06/16 00:00 Room Air 11/05/16 23:14 37.2 91 18 205/79 93 Room Air 175/71 11/05/16 20:00 Room Air 11/05/16 19:19 37.2 82 20 159/75 94 Room Air 11/05/16 16:00 Room Air 11/05/16 15:32 78 18 150/71 91 11/05/16 14:13 147/69 11/05/16 12:00 36.8 73 18 169/74 95 11/05/16 12:00 94 Room Air Lab Results: Results Past 24 Hours Test 11/06/16 05:30 Range/Units White Blood Count 11.79 4.8-10.8 K/uL Red Blood Count 3.63 4.2-5.4 M/uL Hemoglobin 11.1 12.0-16.0 g/dL Hematocrit 31.5 37-47 % Mean Corpuscular Volume 86.8 80-100 fL Mean Corpuscular Hemoglobin 30.6 25-34 pg Mean Corpuscular Hemoglobin Concent 35.2 32-36 g/dl RDW Standard Deviation 45.0 36.4-46.3 fL RDW Coefficient of Variation 14.4 11.5-14.5 % Platelet Count 237 130-400 K/uL Mean Platelet Volume 8.9 7.4-10.4 fL Sodium Level 134 136-145 mmol/L Potassium Level 4.3 3.5-5.1 mmol/L Chloride Level 98 98-107 mmol/L Carbon Dioxide Level 26 21-32 mmol/L Anion Gap 10.0 3-11 mmol/L Blood Urea Nitrogen 26 7-18 mg/dl Creatinine 1.10 0.60-1.20 mg/dl Est Creatinine Clear Calc Drug Dose 44.3 ml/min Estimated GFR () 52.3 Estimated GFR (Non- 45.1 BUN/Creatinine Ratio 23.7 10-20 Random Glucose 108 70-99 mg/dl Calcium Level 8.2 8.5-10.1 mg/dl
[2016-11-06] MEDS: ENOXAPARIN 40 MG/0.4 ML SYR SC SCH (19:48)
[2016-11-06] MEDS: ATORVASTATIN 40 MG TAB PO SCH (19:51)
[2016-11-06] MEDS: MONTELUKAST SOD 10 MG TAB PO SCH (19:51)
[2016-11-06] MEDS: QUETIAPINE FUMARATE 25 MG TAB PO SCH (19:51)
[2016-11-07 00:06] VITALS: BP 155/75; PULSE 88; TEMP 36.4; O2SAT 94
[2016-11-07 03:50] VITALS: BP 134/72; PULSE 8; PULSE 85; TEMP 36.6; O2SAT 96
[2016-11-07] MEDS: LEVOTHYROXINE 25 MCG TAB PO SCH (05:54)
[2016-11-07 06:54] VITALS: BP 161/82; PULSE 81; TEMP 36.6; O2SAT 96
[2016-11-07] MEDS: BISOPROLOL FUMARATE 5 MG TAB PO SCH (07:50)
[2016-11-07] MEDS: SACCHAROMYCES BOUL (FLORASTOR) 250 MG CAP PO SCH (07:51)
[2016-11-07] MEDS: FLUTICASONE/SALMETEROL 250/50 (ADVAIR) 14 PUFF/1 INHALER INH SCH (07:51)
[2016-11-07] MEDS: POTASSIUM CHLORIDE 10 MEQ TABCR PO SCH (07:51)
[2016-11-07] MEDS: ASPIRIN 81 MG ECTAB PO SCH (07:51)
[2016-11-07] MEDS: CEROVITE ADV FORMULA TAB PO SCH (07:51)
[2016-11-07] MEDS: CHOLECALCIFEROL 1000 INTER.UNIT TAB PO SCH (07:51)
[2016-11-07] MEDS: CALCIUM 600MG + VIT D 400 IU TAB PO SCH (07:51)
[2016-11-07] MEDS: PANTOprazole SOD 40 MG TAB PO SCH (07:51)
[2016-11-07] MEDS: CEFTRIAXONE SOD INJ 1,000 MG in DEXTROSE 5% 50ML 50 ML IV SCH (09:18)
--- NOTE | 2016-11-07 10:24 | Progress Note ---
Medicine Progress Note Date & Time of Visit: Nov 07, 2016 at 10:19. Subjective patient seen sitting up in bed alert, comfortable denies chest pain denies abdominal pain, nausea, changes with urination, fever no other symptoms Objective Last 8 Hrs Date Time Temp Pulse Resp B/P Pulse Ox O2 Delivery O2 Flow Rate FiO2 11/07/16 08:30 Room Air 11/07/16 06:54 36.6 81 18 161/82 96 Room Air 11/07/16 04:00 Room Air 11/07/16 03:50 36.6 85 18 134/72 96 Room Air Physical Exam: General- oriented x 2, not in distress, speaks in sentences with no effort Head- atraumatic Eyes- anicteric ENT- oropharynx clear Neck- supple, no JVD Lungs- clear to auscultation bilaterally Heart- normal rate, regular rhythm; no murmurs Abdomen- normal bowel sounds, soft, nontender Extremities- no pretibial edema, no calf tenderness Neuro- alert, oriented x 2; no gross focal deficits Skin- warm & dry Laboratory Results: Last 24 Hours Test 11/07/16 10:02 Assessment & Plan Chest pain, ACS ruled out Resolved -presented with exertional chest pain relieved with nitro -EKG no acute ischemic change; repeat EKG-incomplete LBBB -Serial Troponin -negative -ECHO:: * There is moderate concentric left ventricular hypertrophy. * Ejection Fraction = >70 %. * The right ventricular systolic function is normal. * The left atrium is moderately dilated. * The right atrium is moderately dilated. * Grossly normal valvular structure and function. - continue ASA and Beta wally - Statin started - no recurrence of chest pain during admission UTI, E coli Urine Cx >100k E coli: resistant to ampicillin, cipro, levaquin, bactrim Alpha strep not enterococcus: - given IV Ceftriaxone x 3 days - afebrile, no symptoms monitor HYPERTENSION - improving -cont bisoprolol-HCTZ - monitor BP daily HYPONATREMIA -Na+ 130; likely pre-renal - Na improved to 133-134 - repeat PRP in 2-3 days then monitor regularly HYPOTHYROIDISM -cont levothyroxine DEMENTIA -cont Namenda and Seroquel DVT PROPHYLAXIS - given subcutaneous Lovenox CODE STATUS -DNR per documentation from [facility] DISPO d/c to [facility] today ff up with Primary Care Physician Dr. Gonzalez in 3-5 days Current Inpatient Medications: Current Inpatient Medications Medications (Trade) Dose Ordered Sig/Sohan Route Start Time Stop Time Status Last Admin Dose Admin Enoxaparin Sodium (Lovenox Inj) 40 mg DAILY@2000 SC 11/03/16 20:00 12/03/16 19:59 11/06/16 19:48 40 MG Acetaminophen (Tylenol Tab) 650 mg Q4H PRN PO 11/03/16 15:45 12/03/16 15:44 11/04/16 15:50 650 MG Ondansetron HCl (Zofran Inj) 4 mg Q6H PRN IV 11/03/16 15:45 12/03/16 15:44 Nitroglycerin (Nitrostat Tab) 0.4 mg UD PRN SL 11/03/16 15:45 12/03/16 15:44 Albuterol (Ventolin Hfa Inhaler) 2 puffs Q6H PRN INH 11/03/16 16:00 12/03/16 15:59 Aspirin (Ecotrin Tab) 81 mg DAILY PO 11/04/16 09:00 12/04/16 08:59 11/07/16 07:51 81 MG Bumetanide (Bumex Tab) 0.5 mg MoFr@0900 PO 11/06/16 09:00 12/06/16 08:59 11/06/16 07:58 0.5 MG Calcium/Vitamin D (Caltrate Plus Tab) 1 tab DAILY PO 11/04/16 09:00 12/04/16 08:59 11/07/16 07:51 1 TAB Cholecalciferol (Vitamin D Tab) 3,000 inter.unit DAILY PO 11/04/16 09:00 12/04/16 08:59 11/07/16 07:51 3,000 INTER.UNIT Salmeterol Xinafoate/ Fluticasone (Advair Diskus 250/50 Inh) 1 puff BID INH 11/03/16 21:00 12/03/16 20:59 11/07/16 07:51 1 PUFF Albuterol/ Ipratropium (Duoneb) 3 ml Q6 PRN INH 11/03/16 16:00 12/03/16 15:59 Levothyroxine Sodium (Synthroid Tab) 25 mcg DAILYBB PO 11/04/16 06:30 3/13/17 06:59 11/07/16 05:54 25 MCG Loperamide HCl (Imodium Cap) 2 mg Q4 PRN PO 11/03/16 16:00 12/03/16 15:59 Lorazepam (Ativan Tab) 0.5 mg BID PRN PO 11/03/16 16:00 12/03/16 15:59 Magnesium Hydroxide (Milk Of Magnesia Susp) 30 ml DAILY PRN PO 11/03/16 16:00 12/03/16 15:59 Montelukast Sodium (Singulair Tab) 10 mg HS PO 11/03/16 21:00 12/03/16 20:59 11/06/16 19:51 10 MG Multivitamins/ Minerals (Multivitamin W/ Minerals Tab) 1 tab BID PO 11/03/16 21:00 12/03/16 20:59 11/07/16 07:51 1 TAB Potassium Chloride (Klor-Con M10) 10 meq BID PO 11/03/16 21:00 12/03/16 20:59 11/07/16 07:51 10 MEQ Quetiapine Fumarate (seroQUEL TAB) 25 mg HS PO 11/03/16 21:00 12/03/16 20:59 11/06/16 19:51 25 MG Saccharomyces Boulardii (Florastor Cap) 250 mg BID PO 11/03/16 21:00 12/03/16 20:59 11/07/16 07:51 250 MG Menthol (Nice Lisa) 1 lisa Q4H PRN PO 11/03/16 16:00 12/03/16 15:59 Bisoprolol Fumarate (Bisoprolol Fumarate) 2.5 mg DAILY PO 11/04/16 09:00 12/04/16 08:59 11/07/16 07:50 2.5 MG Miscellaneous Information (Order Awaiting Action) 1 ea QS N/A 11/04/16 00:00 12/04/16 00:00 Guaifenesin/ Dextromethorphan (Robitussin-Dm Syrup) 5 ml Q8 PRN PO 11/03/16 16:00 12/03/16 15:59 Pantoprazole Sodium (Protonix Tab) 40 mg DAILY PO 11/04/16 09:00 12/04/16 08:59 11/07/16 07:51 40 MG Miscellaneous Information (Order Awaiting Action) 1 ea QS N/A 11/04/16 00:00 12/04/16 00:00 Atorvastatin Calcium (Lipitor Tab) 80 mg HS PO 11/03/16 21:00 12/03/16 20:59 11/06/16 19:51 80 MG Hydrochlorothiazide (Hydrochlorothiazide Tab) 6.25 mg DAILY PO 11/04/16 09:00 12/04/16 08:59 Future Hold 11/04/16 07:59 6.25 MG Miscellaneous (Iv Fluids Completed) 1 ea PRN PRN N/A 11/03/16 16:30 11/03/17 16:29 Hydralazine HCl (HydrALAZINE INJ) 10 mg Q6H PRN IV. 11/03/16 20:00 12/03/16 19:59 11/05/16 23:03 10 MG Miscellaneous Information 1 ea 1 ea TID N/A 11/04/16 12:15 12/04/16 12:14 11/05/16 09:00 1 EA Ceftriaxone Sodium/Dextrose (Rocephin Inj/D5 50ml) 60 ml @ 100 mls/hr Q24H IV 11/05/16 09:30 11/10/16 09:29 11/07/16 09:18 100 MLS/HR
[2016-11-07 11:04] VITALS: BP 159/83; PULSE 79; TEMP 36.9; O2SAT 95
[2016-11-07 12:20] LABS: CALCIUM 8.2 mg/dl (8.5-10.1); POTASSIUM 4.2 mmol/L (3.5-5.1)
[2016-11-07 15:29] VITALS: BP 151/68; PULSE 84; TEMP 37; O2SAT 94
--- NOTE | 2016-11-07 15:51 | Discharge Instructions ---
Discharge Instructions Admission Reason for Admission: Precordial Chest Pain Discharge Discharge Diagnosis / Problem: CHEST PAIN, UTI E COLI, HYPONATREMIA Discharge Goals Goal(s): Diagnostic testing, Therapeutic intervention Activity Recommendations Activity Level: Assistance Required Therapies: Physical Therapy, Occupational Therapy FALL PRECAUTIONS PLEASE. REPEAT PRP IN 2-3 DAYS TO CHECK LOW SODIUM, THEN MONITOR REGULARLY MONITOR BP DAILY. TREATED FOR UTI WITH CEFTRIAXONE X 3 DAYS. PLEASE MONITOR. BUMEX (TWICE A WEEK- MON AND FRI) ON HOLD. PLEASE MONITOR. PLEASE REFER TO ACCOMPANYING DISCHARGE SUMMARY FOR FURTHER DETAILS. FOLLOW UP WITH PRIMARY CARE PHYSICIAN DR. GONZALEZ IN 3-5 DAYS. . Additional Information Patient informed of condition: Yes Advance Directives: No (UNKNOWN) DNR: Yes Level of Care: Skilled Communicable Disease: No Prognosis: Improving Instructions / Follow-Up Instructions / Follow-Up FALL PRECAUTIONS PLEASE. REPEAT PRP IN 2-3 DAYS TO CHECK LOW SODIUM, THEN MONITOR REGULARLY MONITOR BP DAILY. TREATED FOR UTI WITH CEFTRIAXONE X 3 DAYS. PLEASE MONITOR. BUMEX (TWICE A WEEK- MON AND FRI) ON HOLD. PLEASE MONITOR. PLEASE REFER TO ACCOMPANYING DISCHARGE SUMMARY FOR FURTHER DETAILS. FOLLOW UP WITH PRIMARY CARE PHYSICIAN DR. GONZALEZ IN 3-5 DAYS. . Current Hospital Diet Patient's current hospital diet: Regular Diet Discharge Diet Recommended Diet: AHA Diet (Heart Healthy) Pending Studies Studies pending at discharge: yes List of pending studies: REPEAT PRP IN 2-3 DAYS TO CHECK LOW SODIUM, THEN MONITOR REGULARLY Physician Orders On Transfer Special Precautions: FALL PRECAUTIONS PLEASE. REPEAT PRP IN 2-3 DAYS TO CHECK LOW SODIUM, THEN MONITOR REGULARLY MONITOR BP DAILY. TREATED FOR UTI WITH CEFTRIAXONE X 3 DAYS. PLEASE MONITOR. BUMEX (TWICE A WEEK- MON AND FRI) ON HOLD. PLEASE MONITOR. PLEASE REFER TO ACCOMPANYING DISCHARGE SUMMARY FOR FURTHER DETAILS. FOLLOW UP WITH PRIMARY CARE PHYSICIAN DR. GONZALEZ IN 3-5 DAYS. . Medical Emergencies . Who to Call and When: Medical Emergencies: If at any time you feel your situation is an emergency, please call 911 immediately. . Non-Emergent Contact Non-Emergency issues call your: Primary Care Provider . Past History Medical & Surgical History: (1) Dementia (2) Hypertension (3) Precordial chest pain (4) Asthma (5) Hypothyroidism (6) Anxiety . "Provider Documentation" section prepared by Jung Oneal. Core Measure Problem Core Measures: None
--- NOTE | 2016-11-07 15:55 | Discharge Summary ---
Discharge Summary Admission Date: Nov 03, 2016 at 16:34 Discharge Date: Nov 07, 2016 Discharge Disposition: long-term facility Principal Diagnosis: Chest pain, Acute Coronary Syndrome ruled out, Resolved Secondary Diagnoses/Problems: UTI, E coli HYPERTENSION HYPONATREMIA HYPOTHYROIDISM DEMENTIA Procedures: 2D ECHO: * There is moderate concentric left ventricular hypertrophy. * Ejection Fraction = >70 %. * The right ventricular systolic function is normal. * The left atrium is moderately dilated. * The right atrium is moderately dilated. * Grossly normal valvular structure and function. Pending Studies/Follow-Up: FALL PRECAUTIONS PLEASE. REPEAT PRP IN 2-3 DAYS TO CHECK LOW SODIUM, THEN MONITOR REGULARLY MONITOR BP DAILY. TREATED FOR UTI WITH CEFTRIAXONE X 3 DAYS. PLEASE MONITOR. BUMEX (TWICE A WEEK- MON AND FRI) ON HOLD. PLEASE MONITOR. PLEASE REFER TO HOSPITAL COURSE BELOW FOR FURTHER DETAILS. FOLLOW UP WITH PRIMARY CARE PHYSICIAN DR. GONZALEZ IN 3-5 DAYS. Medication Reconciliation Continued Medications: Acetaminophen Tab (Tylenol) 325 Mg Tab 650 MG PO Q4H PRN for Pain or Fever, TAB Albuterol Hfa (Ventolin Hfa) 200 Puffs/66719 Mcg Aers 2-4 PUFFS INH Q6H PRN for Wheezing, #1 INHALER Aspirin (Aspirin Ec) 81 Mg Tab 81 MG PO DAILY Benzocaine-Menthol (Mouth-Thro (Cepacol Sore Throat) 1 Amrit Amrit 1 AMRIT PO Q4H PRN for SORE THROAT Bisoprolol & Hydrochlorothiazi (Bisoprolol Fumarate/Warren) 1 Tab Tab 2.5-6.25 MG PO DAILY taking wednesdays and fridays Calcium/Vitamin D (Os-Ld 500 Plus D) Tab 1 TAB PO DAILY, TAB Cholecalciferol (Vitamin D-1000) 1,000 Unit Tab 3 CAP PO DAILY Cyclosporine (Ophth) (Restasis) 0.05 % Emu 1 DROPS OP BID for 30 Days, #60 VIAL 3 Refills Dextromethorphan-Guaifenesin (Siltussin-Dm) 1 Syp Syp 5 ML PO Q8 PRN for cou Esomeprazole Magnesium (Nexium) 40 Mg Capcr 40 MG PO DAILY, CAP Fluticasone Prop/Salmeterol (Advair Diskus 250/50 60 Dose) 1 Ea Aerp 1 PUFFS INH BID for 90 Days, #3 INHALER 3 Refills Ipratropium-Albuterol (Duoneb) 3 Ml Nebu 1 TREATMENT INH Q6 PRN for Shortness of Breath, INHA Levothyroxine Sodium (Synthroid) 25 Mcg Tab 1 TAB PO DAILY for 30 Days, #30 TAB 5 Refills Loperamide Hcl (Imodium) 2 Mg Cap 2 MG PO Q4 PRN for Diarrhea, CAP Lorazepam (Ativan) 0.5 Mg Tab 0.5 MG PO BID PRN for Anxiety, TAB Magnesium Hydroxide (Milk Of Magnesia) 30 Ml Susp 30 ML PO DAILY PRN for Constipation, ML Memantine Hcl (Namenda Xr) 28 Mg Cap 1 CAP PO DAILY Montelukast Sodium (Singulair) 10 Mg Tab 1 TAB PO HS for 90 Days, TAB 1 Refill Ocuvite Preservision (Ocuvite Preservision) 1 Tab Tab 1 TAB PO BID, TAB Potassium Chloride (Micro-K Ext Rel) 10 Meq Capcr 10 MEQ PO BID, CAP Quetiapine Fumarate (Seroquel) 25 Mg Tab 25 MG PO HS, TAB Saccharomyces Boulardii (Florastor) 250 Mg Cap 1 CAP PO BID Discontinued Medications: Bumetanide (Bumex) 1 Mg Tab 0.5 MG PO 2XWK for 90 Days, TAB 1 Refill Admission Information HPI (per Admitting provider): This is an 86 y/o female with PMHx of Dementia, Hypothyroidism, HTN and other problems as outlined below who presents to the ED from [facility] c/o intermittent chest pain x 3 days. Per patient she has been experiencing intermittent chest pain for three days that she describes as central 4/10 pain that does not radiate anywhere. Sxs only come when she is ambulating. She received nitro at the skilled nursing which seemed to help. She denies diaphoresis , SOB, nausea and lightheadedness/dizziness. Pt denies cardiac history. Pt denies fever/chills, abd pain, bowel or bladder issues, LE edema, calf pain. In the ED, vitals are stable. Trop and EKG are unremarkable. CXR is negative. Pt is currently chest pain free and pt will be admitted for further evaluation and treatment. Physical Exam (per Admitting): General Appearance: WD/WN, no apparent distress, + pertinent finding (Pt is sitting up comfotably in bed ) Head: normocephalic, atraumatic Eyes: normal inspection ENT: hearing grossly normal Neck: supple Respiratory/Chest: chest non-tender, lungs clear, normal breath sounds, no respiratory distress Cardiovascular: regular rate, rhythm, no edema, no murmur Abdomen/GI: normal bowel sounds, non tender, soft Back: normal inspection Extremities/Musculoskelatal: normal inspection, no calf tenderness, no pedal edema Neurologic/Psych: alert, normal mood/affect, oriented x 3 Skin: normal color, warm/dry Hospital Course Chest pain, ACS ruled out Resolved -presented with exertional chest pain relieved with nitro -EKG no acute ischemic change; repeat EKG-incomplete LBBB -Serial Troponin -negative -ECHO:: * There is moderate concentric left ventricular hypertrophy. * Ejection Fraction = >70 %. * The right ventricular systolic function is normal. * The left atrium is moderately dilated. * The right atrium is moderately dilated. * Grossly normal valvular structure and function. - continue ASA and Beta wally - Statin started - no recurrence of chest pain during admission UTI, E coli Urine Cx >100k E coli: resistant to ampicillin, cipro, levaquin, bactrim Alpha strep not enterococcus: - given IV Ceftriaxone x 3 days - afebrile, no symptoms monitor HYPERTENSION - improving -cont bisoprolol-HCTZ - monitor BP daily HYPONATREMIA -Na+ 130; likely pre-renal - Na improved to 133-134 - Bumex, usually taken mon and fri, held - repeat PRP in 2-3 days then monitor regularly HYPOTHYROIDISM -cont levothyroxine DEMENTIA -cont Namenda and Seroquel DVT PROPHYLAXIS - given subcutaneous Lovenox CODE STATUS -DNR per documentation from [facility] DISPO d/c to [facility] today ff up with Primary Care Physician Dr. Gonzalez in 3-5 days Total time spent on discharge = 45 MINUTES This includes examination of the patient, discharge planning, medication reconciliation, and communication with other providers. Discharge Instructions Discharge Instructions Admission Reason for Admission: Precordial Chest Pain Discharge Discharge Diagnosis / Problem: CHEST PAIN, UTI E COLI, HYPONATREMIA Discharge Goals Goal(s): Diagnostic testing, Therapeutic intervention Activity Recommendations Activity Level: Assistance Required Therapies: Physical Therapy, Occupational Therapy FALL PRECAUTIONS PLEASE. REPEAT PRP IN 2-3 DAYS TO CHECK LOW SODIUM, THEN MONITOR REGULARLY MONITOR BP DAILY. TREATED FOR UTI WITH CEFTRIAXONE X 3 DAYS. PLEASE MONITOR. BUMEX (TWICE A WEEK- MON AND FRI) ON HOLD. PLEASE MONITOR. PLEASE REFER TO ACCOMPANYING DISCHARGE SUMMARY FOR FURTHER DETAILS. FOLLOW UP WITH PRIMARY CARE PHYSICIAN DR. GONZALEZ IN 3-5 DAYS. . Additional Information Patient informed of condition: Yes Advance Directives: No (UNKNOWN) DNR: Yes Level of Care: Skilled Communicable Disease: No Prognosis: Improving Instructions / Follow-Up Instructions / Follow-Up FALL PRECAUTIONS PLEASE. REPEAT PRP IN 2-3 DAYS TO CHECK LOW SODIUM, THEN MONITOR REGULARLY MONITOR BP DAILY. TREATED FOR UTI WITH CEFTRIAXONE X 3 DAYS. PLEASE MONITOR. BUMEX (TWICE A WEEK- MON AND FRI) ON HOLD. PLEASE MONITOR. PLEASE REFER TO ACCOMPANYING DISCHARGE SUMMARY FOR FURTHER DETAILS. FOLLOW UP WITH PRIMARY CARE PHYSICIAN DR. GONZALEZ IN 3-5 DAYS. . Current Hospital Diet Patient's current hospital diet: Regular Diet Discharge Diet Recommended Diet: AHA Diet (Heart Healthy) Pending Studies Studies pending at discharge: yes List of pending studies: REPEAT PRP IN 2-3 DAYS TO CHECK LOW SODIUM, THEN MONITOR REGULARLY Physician Orders On Transfer Special Precautions: FALL PRECAUTIONS PLEASE. REPEAT PRP IN 2-3 DAYS TO CHECK LOW SODIUM, THEN MONITOR REGULARLY MONITOR BP DAILY. TREATED FOR UTI WITH CEFTRIAXONE X 3 DAYS. PLEASE MONITOR. BUMEX (TWICE A WEEK- MON AND FRI) ON HOLD. PLEASE MONITOR. PLEASE REFER TO ACCOMPANYING DISCHARGE SUMMARY FOR FURTHER DETAILS. FOLLOW UP WITH PRIMARY CARE PHYSICIAN DR. GONZALEZ IN 3-5 DAYS. . Medical Emergencies . Who to Call and When: Medical Emergencies: If at any time you feel your situation is an emergency, please call 911 immediately. . Non-Emergent Contact Non-Emergency issues call your: Primary Care Provider . Past History Medical & Surgical History: (1) Dementia (2) Hypertension (3) Precordial chest pain (4) Asthma (5) Hypothyroidism (6) Anxiety . "Provider Documentation" section prepared by Jung Oneal. Core Measure Problem Core Measures: None
[2016-11-07 16:09] VITALS: BP 151/68; PULSE 84; TEMP 37; O2SAT 94
[2016-11-07] MEDS ORDERED: LORA-741 PO (18:09)
== END 2016-11-07 17:12 ==
LOC: ENRESERVDT → ENRESERVTM → EDBD 13:49 → C.EDC 13:51 → C.MED 16:34
PROVIDERS: ADMIT Hospitalist; ATTEND Internal Medicine
DX: R07.9 Chest pain, unspecified (principal); N39.0 Urinary tract infection, site not specified; B96.20 Unspecified Escherichia coli [E. coli] as the cause of diseases classified elsewhere; E87.1 Hypo-osmolality and hyponatremia; F03.90 Unspecified dementia, unspecified severity, without behavioral disturbance, psychotic disturbance, mood disturbance, and anxiety; I10 Essential (primary) hypertension; J45.909 Unspecified asthma, uncomplicated; E03.9 Hypothyroidism, unspecified; F41.9 Anxiety disorder, unspecified; Z51.81 Encounter for therapeutic drug level monitoring; Z79.899 Other long term (current) drug therapy; Z79.82 Long term (current) use of aspirin; Z66 Do not resuscitate

== ENCOUNTER → 2016-11-09 | Outpatient (CLI) | payer BC ==
[~2016-11-09] MED LIST: ACET325T96 PO; ADVIN25/60 INH; ASPI81TA28 PO; BENZ10LO2 PO; BISO2.5T PO; CALC500C70 PO; CHOL100040 PO; CYCL0.052 OP; DEXTSYP29 PO; IMD/2 PO; IPRASOL4 INH; LEVO25TA PO; LORA-741 PO; MEMA1CAP7 PO; MOML PO; MONT1TAB3 PO; MULT-190 PO; NXM/40 PO; POTA10CA28 PO; QUET1TAB30 PO; SACC250C PO; VNTHFA/IN INH
[2016-11-09 09:14] LABS: BLOOD UREA NITROGEN 28 mg/dl (7-18); BUN/CREATININE RATIO 28.1 (10-20); CALCIUM 8.5 mg/dl (8.5-10.1); CARBON DIOXIDE 24 mmol/L (21-32); CHLORIDE 99 mmol/L (98-107); GLUCOSE 87 mg/dl (70-99); POTASSIUM 4.1 mmol/L (3.5-5.1); SODIUM 133 mmol/L (136-145)
== END ==
LOC: C.LABCC 07:47
PROVIDERS: ATTEND Internal Medicine
DX: E03.9 Hypothyroidism, unspecified (principal); E87.1 Hypo-osmolality and hyponatremia

== ENCOUNTER → 2016-11-13 | Outpatient (CLI) | payer BC ==
[2016-11-13 09:14] LABS: BLOOD UREA NITROGEN 28 mg/dl (7-18); BUN/CREATININE RATIO 25.3 (10-20); CALCIUM 8.5 mg/dl (8.5-10.1); CARBON DIOXIDE 27 mmol/L (21-32); CHLORIDE 99 mmol/L (98-107); GLUCOSE 83 mg/dl (70-99); POTASSIUM 4.3 mmol/L (3.5-5.1); SODIUM 137 mmol/L (136-145)
== END ==
LOC: C.LABCC 07:50
PROVIDERS: ATTEND Internal Medicine
DX: E87.1 Hypo-osmolality and hyponatremia (principal)

== ENCOUNTER → 2016-11-20 | Outpatient (CLI) | payer BC ==
[2016-11-20 08:43] LABS: BLOOD UREA NITROGEN 24 mg/dl (7-18); BUN/CREATININE RATIO 24.3 (10-20); CALCIUM 8.4 mg/dl (8.5-10.1); CARBON DIOXIDE 29 mmol/L (21-32); CHLORIDE 98 mmol/L (98-107); GLUCOSE 94 mg/dl (70-99); POTASSIUM 3.8 mmol/L (3.5-5.1); SODIUM 134 mmol/L (136-145)
== END ==
LOC: C.LABCC 08:11
PROVIDERS: ATTEND Internal Medicine
DX: E87.1 Hypo-osmolality and hyponatremia (principal)

== ENCOUNTER → 2016-11-27 | Outpatient (CLI) | payer BC ==
[2016-11-27 08:46] LABS: BLOOD UREA NITROGEN 25 mg/dl (7-18); BUN/CREATININE RATIO 22.9 (10-20); CALCIUM 8.3 mg/dl (8.5-10.1); CARBON DIOXIDE 25 mmol/L (21-32); CHLORIDE 104 mmol/L (98-107); GLUCOSE 98 mg/dl (70-99); SODIUM 140 mmol/L (136-145)
== END ==
LOC: C.LABCC 08:03
PROVIDERS: ATTEND Internal Medicine
DX: E87.1 Hypo-osmolality and hyponatremia (principal)

== ENCOUNTER → 2017-01-26 | Outpatient (CLI) | payer OTHER ==
[2017-01-26 12:22] LABS: URINE APPEARANCE TURBID (CLEAR); URINE BILIRUBIN NEG (NEG); URINE COLOR YELLOW; URINE EPITHELIAL CELL AUTO >30 /lpf (0-5); URINE NITRITE POS (NEG); URINE PH 8.5 (4.5-7.5); URINE SPECIFIC GRAVITY 1.014 (1.000-1.030); UROBILINOGEN NEG (NEG)
[2017-01-26 12:24] LABS: MANUAL MICROSCOPIC REQUIRED? NO; REVIEW REQ? NO
== END | disposition home or self-care (01) ==
LOC: C.LABSPEC 12:10
PROVIDERS: ATTEND Internal Medicine
DX: N39.0 Urinary tract infection, site not specified (principal)

== ENCOUNTER → 2017-05-30 | Outpatient (CLI) | payer BC ==
[2017-05-30 16:08] LABS: MANUAL MICROSCOPIC REQUIRED? NO; REVIEW REQ? YES; URINE APPEARANCE TURBID (CLEAR); URINE BILIRUBIN NEG (NEG); URINE COLOR YELLOW; URINE EPITHELIAL CELL AUTO >30 /lpf (0-5); URINE NITRITE POS (NEG); URINE PH 6.5 (4.5-7.5); URINE SPECIFIC GRAVITY 1.022 (1.000-1.030); UROBILINOGEN NEG (NEG)
== END | disposition home or self-care (01) ==
LOC: C.LABSPEC 15:39
PROVIDERS: ATTEND Internal Medicine
DX: N39.0 Urinary tract infection, site not specified (principal)

== ENCOUNTER → 2017-05-31 | Outpatient (CLI) | payer BC | END | disposition home or self-care (01) | LOC: C.LABWYN 11:43 | PROVIDERS: ATTEND Internal Medicine | DX: A04.7 Enterocolitis due to Clostridium difficile (principal) ==

== ENCOUNTER → 2017-06-21 | Outpatient (CLI) | payer BC | END | disposition home or self-care (01) | LOC: C.LABWYN 08:36 | PROVIDERS: ATTEND Internal Medicine | DX: R19.7 Diarrhea, unspecified (principal) ==

== ENCOUNTER → 2017-08-28 | Outpatient (CLI) | payer BC ==
[2017-08-28 08:51] LABS: MEAN CELL VOLUME 93.7 fL (80-100); MEAN CORPUSCULAR HEMOGLOBIN 31.4 pg (25-34); MEAN CORPUSCULAR HGB CONC 33.5 g/dl (32-36); MEAN PLATELET VOLUME 11.1 fL (7.4-10.4); PLATELET COUNT 185 K/uL (130-400); RED BLOOD COUNT 3.63 M/uL (4.2-5.4); WHITE BLOOD COUNT 7.28 K/uL (4.8-10.8)
[2017-08-28 08:52] LABS: BLOOD UREA NITROGEN 30 mg/dl (7-18); BUN/CREATININE RATIO 25.1 (10-20); CALCIUM 8.5 mg/dl (8.5-10.1); CARBON DIOXIDE 28 mmol/L (21-32); CHLORIDE 106 mmol/L (98-107); CREATININE 1.21 mg/dl (0.60-1.20); GLUCOSE 94 mg/dl (70-99); POTASSIUM 3.7 mmol/L (3.5-5.1); SODIUM 142 mmol/L (136-145)
== END | disposition home or self-care (01) ==
LOC: C.LABWYN 08:12
PROVIDERS: ATTEND Internal Medicine
DX: I10 Essential (primary) hypertension (principal); F03.90 Unspecified dementia, unspecified severity, without behavioral disturbance, psychotic disturbance, mood disturbance, and anxiety

== ENCOUNTER → 2017-09-21 | Outpatient (CLI) | payer BC | END | disposition home or self-care (01) | LOC: C.LABWYN 12:04 | PROVIDERS: ATTEND Internal Medicine | DX: I10 Essential (primary) hypertension (principal); F03.90 Unspecified dementia, unspecified severity, without behavioral disturbance, psychotic disturbance, mood disturbance, and anxiety; R30.0 Dysuria ==

== ENCOUNTER → 2018-04-16 | Outpatient (CLI) | payer BC ==
[~2018-04-16] MED LIST changes: +ACET-1693 PO; -ACET325T96 PO; +IPRA-64 INH; -IPRASOL4 INH
[2018-04-16 08:58] LABS: BLOOD UREA NITROGEN 19 mg/dl (7-18); CALCIUM 8.1 mg/dl (8.5-10.1); CARBON DIOXIDE 28 mmol/L (21-32); CREATININE 1.07 mg/dl (0.60-1.20); GLUCOSE 89 mg/dl (70-99); POTASSIUM 3.9 mmol/L (3.5-5.1); SODIUM 135 mmol/L (136-145)
== END | disposition home or self-care (01) ==
LOC: C.LABWYN 08:29
PROVIDERS: ATTEND Internal Medicine
DX: I10 Essential (primary) hypertension (principal); F03.90 Unspecified dementia, unspecified severity, without behavioral disturbance, psychotic disturbance, mood disturbance, and anxiety